=== PATIENT | male | born 1975 | race Caucasian/White ===

== ENCOUNTER 2018-09-16 16:35 | Emergency (ER) | payer OTHER, MEDICAID ==
[2018-09-16] MEDS ORDERED: DIAZEPAM 5 MG/ML 1 ML SYR IVP ONE (16:45)
[2018-09-16] MEDS ORDERED: KETOROLAC 15 MG/1 ML SDV IVP ONE (16:45)
[2018-09-16] MEDS ORDERED: LIDOCAINE 4%/MENTHOL 1% PATCH TD ONE (16:45)
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
[2018-09-16 18:10] VITALS: BP 135/78
[2018-09-16] MEDS ORDERED: PATCH REMOVAL 1 EA PATCH TD SCH (21:00)
== END 2018-09-16 18:22 | disposition home or self-care (01) ==
LOC: EDUNIT#
DX: S13.4XXA Sprain of ligaments of cervical spine, initial encounter (principal); V44.5XXA Car driver injured in collision with heavy transport vehicle or bus in traffic accident, initial encounter; Y92.410 Unspecified street and highway as the place of occurrence of the external cause; Y93.9 Activity, unspecified; Y99.9 Unspecified external cause status
CPT/HCPCS: 96374; A4565; J1885; J3360

== ENCOUNTER → 2018-09-24 | Outpatient (CLI) | payer MEDICAID | LOC: BMCIMAGING 14:14 | PROVIDERS: ATTEND Physician Assistant | DX: S42.032D Displaced fracture of lateral end of left clavicle, subsequent encounter for fracture with routine healing (principal) ==

== ENCOUNTER 2018-10-02 12:55 | Day surgery (SDC) | payer MEDICAID, OTHER ==
--- NOTE | 2018-10-02 06:25 | PDHPUP ---
History & Physical Update H&P update statement: This history and physical update is based on an assessment of the patient which was completed after admission or registration (within 24 hours), but prior to the surgery/procedure. H&P update: no change in patient's condition since H&P completed
[2018-10-02] MEDS ORDERED: LR 1,000 ML IV SCH (13:08)
[2018-10-02] MEDS ORDERED: ceFAZolin 2 GM/DEXTROSE 100 ML IV ONE (13:08)
[2018-10-02] MEDS ORDERED: EPINEPHrine 1 MG/ML INJ ONE ×2 (14:30→14:40)
[2018-10-02] MEDS ORDERED: BUPIVACAINE/EPI 0.5% 30 ML SDV ONE ×2 (14:30→14:40)
[2018-10-02] MEDS ORDERED: MIDAZOLAM 2 MG/2 ML VIAL IVP ONE (15:04)
--- NOTE | 2018-10-02 15:06 | PDANEPAE ---
ANE Past Medical History - Cardiovascular History Hx Hypertension: No Hx Arrhythmias: No Hx Chest Pain: No Hx Coronary Artery / Peripheral Vascular Disease: No Hx CHF / Valvular Disease: No Hx Palpitations: No - Pulmonary History Hx COPD: No Hx Asthma/Reactive Airway Disease: No Hx Recent Upper Respiratory Infection: No Hx Oxygen in Use at Home: No Hx Sleep Apnea: No Sleep Apnea Screening Result - Last Documented: Negative - Neurologic History Hx Cerebrovascular Accident: No Hx Seizures: No Hx Dementia: No - Endocrine History Hx Diabetes: No Obesity: mild - Renal History Hx Renal Disorders: No - Liver History Hx Hepatic Disorders: No - Neurological & Psychiatric Hx Hx Neurological and Psychiatric Disorders: No - Cancer History Hx Cancer: No - Congenital Disorder History Hx Congenital Disorders: No - GI History GERD: no Hx Gastrointestinal Disorders: No - Other Health History Other Health History: wears reading glasses - Chronic Pain History Chronic Pain: No - Surgical History Prior Surgeries: wisdom teeth ANE Review of Systems Review of Systems: - Exercise capacity METS (RN): 4 METS ANE Patient History - Allergies Allergies/Adverse Reactions: No Known Allergies Allergy (Verified 10/01/18 13:04) - Home Medications Home medications: home medication list seen and reviewed Home Medications: NK [No Known Home Meds] 10/01/18 [Last Taken Unknown] - NPO status NPO Status: no food or drink >8 hours NPO Since - Liquids (Date): 10/02/18 NPO Since - Liquids (Time): 04:00 NPO Since - Solids (Date): 10/02/18 NPO Since - Solids (Time): 04:00 - Anes Hx Anes Hx: no prior problems - Smoking Hx Smoking Status: Never smoked - Family Anes Hx Family Hx Anesthesia Complications: none ANE Labs/Vital Signs - Vital Signs Blood Pressure: 134/89 Heart Rate: 75 Respiratory Rate: 16 O2 Sat (%): 98 Height: 172.72 cm Weight: 92.986 kg ANE Physical Exam - Airway Neck exam: FROM Mallampati Score: Class 2 Mouth exam: normal dental/mouth exam - Pulmonary Pulmonary: no respiratory distress, no rales or rhonchi, clear to auscultation - Cardiovascular Cardiovascular: regular rate and rhythym, no murmur, rub, or gallop - ASA Status ASA Status: I ANE Anesthesia Plan Anesthesia Plan: GA w LMA
[2018-10-02] MEDS ORDERED: PROMETHAZINE HCL 25 MG/ML INJ IVP PRN ×2 (15:33→17:05)
[2018-10-02] MEDS ORDERED: LR 500 ML IV PRN ×2 (15:33→17:05)
[2018-10-02] MEDS ORDERED: ONDANSETRON 4 MG/2 ML VIAL IVP PRN ×2 (15:33→17:05)
[2018-10-02] MEDS ORDERED: oxyCODONE IR 5 MG TAB PO PRN ×3 (15:33→18:05)
[2018-10-02] MEDS ORDERED: PHENYLEPHRINE HCL 100 MCG/ML SYR IVP PRN ×2 (15:33→17:05)
[2018-10-02] MEDS ORDERED: fentaNYL 100 MCG/2 ML INJ IVP PRN ×2 (15:33→17:05)
[2018-10-02] MEDS ORDERED: METOCLOPRAMIDE 10 MG/2 ML VIAL IVP PRN ×2 (15:33→17:05)
[2018-10-02] MEDS ORDERED: MEPERIDINE 25 MG/0.5 ML AMP IVP PRN ×2 (15:33→17:05)
[2018-10-02] MEDS ORDERED: HYDROmorphONE/DILAUDID 2 MG/ML INJ IVP PRN ×2 (15:33→17:05)
[2018-10-02] MEDS ORDERED: NALOXONE HCL 0.4 MG/ML INJ IVP PRN ×2 (15:33→17:05)
[2018-10-02] MEDS ORDERED: DEXAMETHASONE 4 MG/ML VIAL ONE (15:42)
[2018-10-02] MEDS ORDERED: ROCURONIUM 50 MG/5 ML VIAL ONE (15:42)
[2018-10-02] MEDS ORDERED: LIDOCAINE 2% 5 ML SDV ONE (15:42)
[2018-10-02] MEDS ORDERED: ONDANSETRON 4 MG/2 ML VIAL ONE (15:42)
[2018-10-02] MEDS ORDERED: fentaNYL 250 MCG/5 ML INJ ONE (15:42)
[2018-10-02] MEDS ORDERED: PROPOFOL 200 MG/20 ML VIAL ONE (15:42)
[2018-10-02] MEDS ORDERED: PHENYLEPHRINE HCL 100 MCG/ML SYR ONE (17:03)
[2018-10-02] MEDS ORDERED: ePHEDrine SULFATE 25 MG/5 ML SYR ONE (17:08)
[2018-10-02] MEDS ORDERED: SUGAMMADEX SODIUM 200 MG/2 ML VIAL IVP ONE (17:56)
--- NOTE | 2018-10-02 18:08 | POSTOPPROG ---
Post Op Note Date of Operation: 10/02/18 Surgeon: Abdulaziz Lawton Audit Director: [place] Anesthesia: GET(General Endotracheal) Pre-op Diagnosis: left shoulder distal clavicle fx and ac separation Post-op Diagnosis: same Indication: same Procedure: right shoulder distal clavicle excision and ac stabilization Inf/Abcess present in the surg proc area at time of surgery?: No Depth: Superfical (Skin SQ) EBL: Minimal
[2018-10-02] MEDS ORDERED: fentaNYL 100 MCG/2 ML INJ ONE (18:39)
[2018-10-02] MEDS ORDERED: oxyCODONE IR 5 MG TAB ONE (18:39)
[2018-10-02 19:33] VITALS: BP 126/80
--- NOTE | 2018-10-03 07:41 | POSTANESTH ---
Post Anesthetic Evaluation Cardiovascular Status: Normal, Stable Respiratory Status: Normal, Stable Level of Consciousness/Mental Status: Can Participate in Eval Pain Control: Adequate, Prn Tx Ordered Nausea/Vomiting Control: Adequate, Prn Tx Ordered Complications Possibly Related to Anesthesia: None Noted
--- NOTE | 2018-10-03 08:51 | GOP ---
DATE OF OPERATION: 10/02/2018 SURGEON: Abdulaziz Lawton MD PRIMARY SPECIAL EDUCATOR: Juan Velásquez GARMENT TURNER, [employer], instructor adjunct surgical technician who was medical necessity for the entirety of the case. PREOPERATIVE DIAGNOSIS: 1. Left shoulder distal clavicle fracture. 2. Acromioclavicular separation. POSTOPERATIVE DIAGNOSIS: 1. Left shoulder distal clavicle fracture. 2. Acromioclavicular separation. PROCEDURE PERFORMED: 1. Left shoulder acromioclavicular joint stabilization. 2. Open distal clavicle excision. 3. Diagnostic arthroscopy. FINDINGS: SPECIMENS: None. INDICATIONS: The patient is a 43-year-old gentleman who sustained injury to his left shoulder with a distal clavicle fracture and AC separation. He has functional grade III AC separation with a 1 cm c omminuted fracture of the distal clavicle. I have recommended simple excision of the distal clavicle and AC joint stabilization. He understood the risks, benefits, alternatives, and wished to proceed. Written consent was signed and placed in patient's chart. DESCRIPTION OF PROCEDURE: The patient was identified in the preanesthesia area. The left shoulder c learly demarcated as the operative site with indelible marker. He was given 2 g of Ancef intravenous ly in route to the operative suite. In the OR, general endotracheal anesthesia was administered. At tention was turned to the left shoulder, which was sterilely prepped and draped in the usual fashion. He was positioned in the beach chair position. All bony prominences were well padded, including us e of a neurological screwhead stoner and polisher. Standard arthroscopic portal sites were created after appropriate time-out procedure and diagnostic a rthroscopy ensued. The articular surface of the glenoid and humeral head were intact without focal c hondromalacia. There was mild fraying of his labrum, which was minimally debrided. The biceps was s table and intact to gentle probing. There were no loose articular fragments or debris in the axillar y pouch, and the rotator cuff demonstrated mild inflammation without tearing. The arthroscope was th en used with a 70-degree scope and a cautery device to clear the anterior pouch to the inferior surfa ce of the coracoid. An open incision was made over the dorsal aspect of the clavicle, carried sharply through the skin an d subcutaneous tissue directly down to the clavicle. The distal 4 cm of the clavicle was exposed. T he fracture was comminuted and grossly mobile. This was removed and debrided to a clean and stable e dge. The dorsal lateral edge of the clavicle was debrided and tapered to avoid prominence. This are a was irrigated. Using the Arthrex guide, guide was passed inferior to the coracoid and over the bruno bridger aspect of the clavicle. All 4 cortices were then drilled. A Nitinol wire was passed into the sh oulder joint and used to retrieve the sutures for the FiberTape and inferior coracoid button. The bu tton was then secured across the coracoid under direct visualization. A dog bone button was placed o robby the dorsal aspect of the clavicle and secured with dorsal pressure on the clavicle. This wound was then copiously irrigated. The sutures were then tucked closed using 0 Vicryl in multi ple layers. 2-0 Monocryl, and anuel. Arthroscopic portal sites were closed using 4-0 nylon suture. The shoulder instilled with 30 cc of 0.5% Marcaine with epinephrine. Sterile dressing and sling we re applied. The patient was awakened, extubated, and taken to the recovery room in good and stable c ondition. TOTAL TOURNIQUET TIME: None. COMPLICATIONS: None. IMPLANTS: As above. /[id number]/MODL
== END 2018-10-02 19:46 | disposition home or self-care (01) ==
LOC: FSGY 12:55
PROVIDERS: ATTEND Orthopaedic Surgery
PROC: 0PS Upper Bones, Reposition (ICD-10-PCS; principal; 2018-10-02 15:00)
PROC: 0PHB04Z Insertion of Internal Fixation Device into Left Clavicle, Open Approach (ICD-10-PCS; principal; 2018-10-02 15:00)
PROC: 0PBB0ZZ Excision of Left Clavicle, Open Approach (ICD-10-PCS; principal; 2018-10-02 15:00)
DX: S42.032A Displaced fracture of lateral end of left clavicle, initial encounter for closed fracture (principal); S43.102A Unspecified dislocation of left acromioclavicular joint, initial encounter
CPT/HCPCS: C1713; J0171; J0690; J1100; J2250; J2370; J2405; J2704; J3010